=== PATIENT | female | born 2000 | race Caucasian/White ===

== ENCOUNTER 2019-01-23 23:08 | Emergency (ER) | payer OTHER ==
[2019-01-24] MEDS ORDERED: LORazepam 1 MG TAB PO STA (00:10)
[2019-01-24] MEDS ORDERED: ONDANSETRON ODT 4 MG TAB PO STA (00:10)
--- NOTE | 2019-01-24 00:11 | ED ---
Psych HPI - General Chief Complaint: Psychiatric Symptoms Stated Complaint: Anxiety Time Seen by Provider: 01/24/19 00:05 Source: patient, RN notes reviewed, old records reviewed Mode of arrival: ambulatory - History of Present Illness Initial Comments: This is a 18-year-old female the ER for psychiatric evaluation. Patient denies drug or alcohol. Patient severe history of anxiety, history of anxiety, denies any real new change in medications no change distress. Patient takes no medication for anxiety. Patient denies any stressors denies homicidal or suicidal thoughts, no drug abuse MD Complaint: feels depressed, other (Patient is severely anxious) -: hour(s) Associated Psychiatric Symptoms: racing thoughts History of same: Yes Quality: constant Improves With: medication Worsens With: none Context: significant life stressor Associated Symptoms: shortness of breath, nausea Treatments Prior to Arrival: none - Related Data Allergies Allergy/AdvReac Type Severity Reaction Status Date / Time No Known Allergies Allergy Verified 01/23/19 23:52 Review of Systems ROS Statement: Those systems with pertinent positive or pertinent negative responses have been documented in the HPI. ROS Other: All systems not noted in ROS Statement are negative. 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 Absent: scleral icterus, conjunctival injection, periorbital swelling ENT exam: Present: normal exam, mucous membranes moist Neck exam: Present: normal inspection. Absent: tenderness, meningismus, lymphadenopathy Respiratory exam: Present: normal lung sounds bilaterally. Absent: respiratory distress, wheezes, rales, rhonchi, stridor Cardiovascular Exam: Present: regular rate, normal rhythm, normal heart sounds. Absent: systolic murmur, diastolic murmur, rubs, gallop, clicks GI/Abdominal exam: Present: soft, normal bowel sounds. Absent: distended, tenderness, guarding, rebound, rigid Extremities exam: Present: normal inspection, full ROM, normal capillary refill. Absent: tenderness, pedal edema, joint swelling, calf tenderness Back exam: Present: normal inspection Neurological exam: Present: alert, oriented X3, CN II-XII intact Psychiatric exam: Present: normal affect, normal mood Skin exam: Present: warm, dry, intact, normal color. Absent: rash Course Vital Signs 01/23/19 01/24/19 23:45 00:18 Temperature 98.9 F 98 F Pulse Rate 91 102 H Respiratory 18 16 Rate Blood Pressure 123/77 124/89 O2 Sat by Pulse 100 94 L Oximetry Medical Decision Making - Medical Decision Making 18 female the ER for evaluation regarding patient's anxiety is improved here in the ER patient can be discharged home Disposition Clinical Impression: Acute anxiety Disposition: HOME SELF-CARE Condition: Good Instructions (If sedation given, give patient instructions): Anxiety (ED) Is patient prescribed a controlled substance at d/c from ED?: No Referrals: Samantha Forde MD [Primary Care Provider] - 1-2 days
[2019-01-24 00:24] VITALS: BP 124/89; PULSE 102; RESP 16; TEMP 98
--- NOTE | 2019-01-25 01:51 | CDI ---
Documentation Clarification OP Dear Marlon CROWDER, DO Please do addendum to ED report for missing HPI and Physical examination. Thank you, Afsaneh Villatoro Checker Stocker If you have any questions, please contact Public Health Specialist at [phone] [facility]
== END 2019-01-24 00:25 | disposition home or self-care (01) ==
LOC: EC 23:08
DX: F41.9 Anxiety disorder, unspecified (principal); F32.9 Major depressive disorder, single episode, unspecified; R11.0 Nausea; R06.02 Shortness of breath
CPT/HCPCS: 99283